=== PATIENT | female | born 2000 | race Caucasian/White ===

== ENCOUNTER 2018-06-06 14:57 | Observation (INO) | payer MEDICAID, SELFPAY ==
--- NOTE | 2018-06-06 15:10 | PCM.HP.STD ---
Problem List (1) Acute narcotic withdrawal Status: Acute (2) Heroin abuse Status: Chronic (3) Xanax use disorder, mild, in sustained remission, abuse Status: Chronic (4) Anxiety and depression Status: Chronic (5) PTSD (post-traumatic stress disorder) Status: Chronic (6) Tobacco abuse Status: Acute History of Present Illness Date of Admission: 06/06/18 Chief Complaint: Acute opiate withdrawal The patient is a 17 y/o F w/ PMHx: Anxiety and Depression/PTSD prescribed cannabis with no usage currently x 2 months, Prior BZD abuse w/ regular Xanax abuse with no usage currently x 6 months, Heroine Usage via snorting only with denied IVDA with usual regimen 1 gm daily, Tobacco use who presents to the [facility] at [facility] on 06/06/18 w/ noted opiate withdrawal onset starting this AM following last dose ~ 1 gm heroine nearing midnight the evening prior with abdominal pain/cramping, generalized body aches and pains, rhinorrhea, piloerection, fatigue, restless leg, sweating, yawning. Patient interested in attaining clean status. She plans to transition following to inpatient treatment in [place]. Past Medical History Past Medical History (Chronic Problems): Chronic Problems Heroin abuse (Chronic) Xanax use disorder, mild, in sustained remission, abuse (Chronic) Anxiety and depression (Chronic) PTSD (post-traumatic stress disorder) (Chronic) Home Medications: Ambulatory Orders Medication Instructions Recorded Multivitamin [Multiple Vitamins] 1 each PO DAILY 06/06/18 Surgical History: - - Deviated septum repair. Psychiatric History: Anxiety, Depression, Post traumatic stress TRANS ROUTER History: No pertinent TRANS ROUTER history Lives: With Family - Patient was with her mother. Smoking Status: Current every day smoker Tobacco Use: Cigarettes Alcohol: Sober - Patient has been off alcohol for at least one year. Drugs: - - Patient has a history of prior Xanax abuse but has been off usage times 6 months in addition to a history of cannabis usage which she has been prescribed for her PTSD and has been off for 2 months, history of crack usage off times 2 months as well as a prior history of heavy alcohol consumption but sober times 1 year. - *Family History Maternal History Items: Hypertension, - - She also notes a maternal grandfather with a history of diabetes. Paternal History Items: Unknown - She does not know her paternal family history. Review of Systems Constitutional: Reports: Malaise, Weakness, Fatigue. Denies: Chills, Fever, Weight Change HEENT: Reports: Nasal Congestion, Post Nasal Drip, Sinus Congestion. Denies: Head Aches, Sinus Drainage Cardiovascular: Denies: Chest Pain, Palpitations Respiratory: Denies: Cough, Shortness of breath at rest, Sputum production Gastrointestinal: Reports: Abdominal Pain, Diarrhea, Nausea. Denies: Vomiting Genitourinary: Denies: Dysuria Musculoskeletal: Reports: Joint Pain, Muscle pain. Denies: Joint Tenderness Skin: Denies: Rash, Wounds Neurological: Denies: Numbness, Tingling, Focal weakness Psychiatric: Reports: Anxiety, Depression. Denies: Homicidal Ideations, Suicidal Ideations Hematologic/ Lymphatic: Denies: Easy Bruising, Easy Bleeding VTE Information - Inpt Only VTE Present on Admission: No VTE Mechan Device Prophylaxis: None VTE Pharm Prophylaxis ordered?: No Reason prophylaxis not ordered:: Treatment Not Indicated Patient Problems: Active and Suspected Problems Acute narcotic withdrawal (Acute) Tobacco abuse (Acute) Subjective: Seated upright the bed, notes ongoing nausea, mildly agitated. Objective: Physical Examination: General: awake, alert, oriented x 3 and cooperative, seated upright in MS bed, mildly agitated, rocking in the bed, noting nauseated. Skin: normal color, turgor, no icterus, cyanosis. HEENT: AT/NC, EOMI, PERRLA, mildly dry MM, no carotid bruits or JVD noted. Lungs: CTA bilaterally, moderate effort, mild decrease BL bases, no rales, ronchi or wheezing. Heart: Mildly tachycardic egular rate and rhythm; no gallop, rub audible. Abdomen: soft, mild generalized discomfort w/ palpation, ND, mildly hyperactive BS, no HSM. Extremities: no cyanosis, clubbing, or edema. Neurological: patient awake, alert, oriented x 3; cognitive function appears baseline intact; pupils equally reactive to light and accomodation; cranial nerves II-XII grossly normal, moving all 4 extremities, no focal deficits, strength mildly to moderately globally decreased secondary to acute presentation. Psychiatric: affect appears fatigued, mildly agitated, no acute evidence of depressive or anxiety feelings. Assessment/Plan All Active Problems Acute narcotic withdrawal (Acute) Tobacco abuse (Acute) The patient is a 17 y/o F w/ PMHx: Anxiety and Depression/PTSD prescribed cannabis with no usage currently x 2 months, Prior BZD abuse w/ regular Xanax abuse with no usage currently x 6 months, Heroine Usage via snorting only with denied IVDA with usual regimen 1 gm daily, Tobacco use who presents to the [facility] at [facility] on 06/06/18 w/ noted opiate withdrawal onset. (1) Acute Opiate Withdrawal: Will admit to [facility], obtain routine labs including CBC, CMP, urine for drug screen, urinalysis, serum lipase, routine EKG and will initiate and continue on [facility] service protocol with tapering course of Subutex, as needed Seroquel, Librium, Sinemet, Catapres, Bentyl, Vistaril, IV fluids, IV antiemetics, Tylenol as needed for pain. Once patient clinically improved and completion of taper nearing will plan [facility] assistance for transition to next level of rehabilitation care. (2) Polysubstance Abuse Hx, Denied any IVDA Hx: To be cautious will obtain HIV, hepatitis panel. Encouraged PCP establishment and follow-up. (3) Tobacco Abuse: Encouraged cessation, inpatient consultation per RT, NR if desired. (4) Anxiety and Depression/PTSD: Would benefit from consideration SSRI, strongly recommend avoidance of cannabis as regimen given abuse history in addition to avoidance of BZD given prior abuse on xanax. (5) DVT Prophylaxis: Low risk, ambulation. Code Visit Inpatient E&M: 38861 Init Hosp L3
[2018-06-06 15:21] VITALS: BMI 23.8
[2018-06-06 15:26] VITALS: BMI 23.8
[2018-06-06 15:46] VITALS: BP 114/75; PULSE 91; RESP 16; TEMP 36.7; O2SAT 98
[2018-06-06 16:05] LABS: Red Blood Cells-Urine 0 SEEN /hpf (0-5)
[2018-06-06 16:07] LABS: Color, Urine Yellow (Yellow); Glucose, Dipstick Normal (Normal); Ketone-Dipstick Negative (Negative); Leukocyte Esterase-Dipstick 25 /ul (Negative); Nitrite-Dipstick Negative (Negative); Occult Blood-Urine Negative /ul (Negative); Protein-Dipstick 100 mg/dl (Negative); Specific Gravity, Urine 1.015 (1.002-1.030); Urine Bilirubin Dipstick Negative (Negative); Urine Clarity Sl. Cloudy (Clear); Urine Urobilinogen 1 mg/dl (Normal)
[2018-06-06 16:18] LABS: Amorphous Sediment 2+; Bacteria 3+ /hpf (None Seen); Mucous, Urine 2+ /hpf (<or=2+); Squamous Epithelial Cells - UA 5-10 SEEN /hpf (5-10); White Blood Cells 0-5 SEEN /hpf (0-5)
[2018-06-06 16:24] LABS: Absolute Lymphocyte Count 2.91 X10^3/ul (0.83-4.51); Absolute Neutrophil Count 3.8 X10^3/uL (2.0-7.7); Basophil# 0.03 X10^3/uL; Basophil% 0.4 % (0-1); Eosinophil# 0.12 X10^3/uL; Eosinophils% 1.7 % (0-5); Hematocrit 39.9 % (37-47); Hemoglobin 13.3 g/dl (12.0-15.0); Lymphocyte # 2.91 X10^3/ul (4.0); Lymphocyte % 40.1 % (19-41); Mean Corp Hgb Conc 33.3 g/gl (32-36); Mean Corpuscular Volume 86.9 fL (81-99); Mean Platelet Vol. 10.1 fl (6.2-12.0); Monocyte# 0.42 X10^3/uL; Monocyte% 5.8 % (0-10); Neutrophil # 3.77 X10^3/uL (2.7-7.7); Neutrophil % 51.9 % (47-70); Platelet Count 223 K/mm3 (150-450); RBC Distribution Width CV 13.1 % (11.6-14.6); RBC Distribution Width SD 41.8 fl (35.1-43.9); Red Blood Count 4.59 M/mm3 (4.2-5.4); White Blood Count 7.3 K/mm3 (4.4-11.0)
[2018-06-06 16:25] LABS: POSITIVE COUNT NO; POSITIVE DIFFERENTIAL NO; POSITIVE MORPHOLOGY NO
[2018-06-06 16:27] LABS: Prothrombin Time (Protime)PT. 12.9 SECONDS (11.7-14.9)
[2018-06-06 16:33] LABS: Amphetamine Urine VISTA NEGATIVE (<1000 ng/mL); Barbiturate Urine VISTA NEGATIVE (< 200 ng/mL); Benzodiazepine Urine VISTA POSITIVE (< 200 ng/mL); Cocaine Urine VISTA NEGATIVE (< 300 ng/mL); Ecstacy Urine VISTA NEGATIVE (< 500 ng/mL); Methadone Urine VISTA NEGATIVE (< 300 ng/mL); PCP Urine VISTA NEGATIVE (< 25 ng/mL); THC Urine VISTA NEGATIVE (< 50 ng/mL); Vista UDS pH Range 6
[2018-06-06] MEDS: Buprenorphine HCl 2 MG TAB.SUBL SL ×2 (16:37→23:08)
[2018-06-06 16:40] LABS: ALB/GLOB Ratio 1.2 RATIO (0.9-2.4); AST(SGOT) 30 U/L (15-37); Alanine Aminotransfer ALT/SGPT 33 U/L (13-56); Albumin, Serum 4.6 g/dL (3.2-5.0); Alkaline Phosphatase 84 U/L (45-117); Amylase 63 U/L (25-115); Anion Gap 10 (5-15); BUN 14 mg/dL (7-18); BUN/Creat Ratio 15.6 RATIO (10-20); Calcium,Total 9.4 mg/dL (8.5-10.1); Chloride 93 mmol/L (98-107); EST Glomerular Filtration Rate 86 mL/min (>60); Est Glom Filt Rate - Afr Amer 103 mL/min (>60); Estimated Creatinine Clearance 72.22 ml/min; Globulin 3.9 g/dL (2.2-4.2); Glucose 142 mg/dL (74-106); Lipase 69 U/L (73-393); Potassium 2.6 mmol/L (3.5-5.1); Protein, Total 8.5 g/dL (6.4-8.2); Sodium Level 134 mmol/L (136-145)
[2018-06-06 16:45] VITALS: PULSE 112
[2018-06-06] MEDS: Methocarbamol 750 MG Tablet PO ×2 (16:45→23:08)
[2018-06-06] MEDS: cloNIDine HCl 0.1 MG Tablet PO ×2 (16:45→23:08)
[2018-06-06] MEDS: hydrOXYzine PAM 25 MG Capsule 50 MG PO (16:45)
[2018-06-06 16:47] LABS: Pregnancy, Serum, hCG Quali. NEGATIVE Negative (0-9 Nonpreg)
[2018-06-06 16:52] LABS: Magnesium 2.1 mg/dL (1.6-2.6)
[2018-06-06 17:27] LABS: HIV - WCH Non-Reactive (Nonreactive)
[2018-06-06 17:50] VITALS: BP 108/68; PULSE 101; RESP 16; TEMP 36.6
[2018-06-06 23:00] VITALS: BP 98/57; PULSE 86; RESP 16; TEMP 36.6
[2018-06-06] MEDS: traZODone 50 MG Tablet PO (23:08)
[2018-06-07 02:00] VITALS: BP 95/62; PULSE 72; RESP 16; TEMP 36.6
[2018-06-07 06:00] VITALS: BP 101/58; PULSE 91; RESP 16; TEMP 36.6
[2018-06-07] MEDS: Buprenorphine HCl 2 MG TAB.SUBL SL ×3 (07:00→23:04)
[2018-06-07] MEDS: Methocarbamol 750 MG Tablet PO (07:00)
[2018-06-07] MEDS: cloNIDine HCl 0.1 MG Tablet PO ×3 (07:01→18:20)
[2018-06-07] MEDS: hydrOXYzine PAM 25 MG Capsule 50 MG PO ×2 (07:01→20:51)
[2018-06-07] MEDS: Loperamide 2 MG Capsule PO (07:03)
--- NOTE | 2018-06-07 07:53 | PN_ITS ---
Patient Problems: Active and Suspected Problems Acute narcotic withdrawal (Acute) Tobacco abuse (Acute) Subjective: The patient is a 17-year-old female with a past medical history of anxiety/depression/PTSD and tobacco dependence who has a history of prescribed cannabis use (states has not used in 2 months), prior Benzo abuse(denies use for 6 months) and heroin use currently. Denies IV use....she snorts the heroin and uses approximately 1 g daily. She presented to the [facility] office on 06/06/2018 requesting inpatient admission for medical stabilization for acute opiate withdrawal. Symptoms at admission included abdominal pain/cramping, generalized body aches and pains, rhinorrhea, restless leg and sweating. CBC was normal. PT was normal. Potassium was low at 2.6. A random blood sugar was elevated at 142 and serum test was negative. A clean-catch urine showed 0-5 WBCs with 3+ bacteria and 5-10 squamous epithelial cells. Urine drug screen was positive for opiates and benzodiazepines which she stated she had not used in 6 months. HIV was nonreactive and the hepatitis panel is pending. Her fiance is a recovering addict. She is dropping out of college this semester. Was in [facility] in March and went back to using almost as soon as she was discharged. Tells me that her father is BIpolar and an addict and she is also bipolar. Has been on multiple meds in the past but, then she went to a holistic healer who put her on a lot of vitamins and cleanses and this worked for her but, she uses heroin to self-medicate. Plans on going to in-pt facility this time at [place] and she has an appt at [facility] on 06/12/2018 at 8:30 AM. She plans on going home to her mother's house at discharge on Sunday. Her mother is not an addict......she plans on driving herself there. Objective: PHYSICAL EXAM: GENERAL: alert, oriented X 3, Cooperative, NAD, diaphoretic, not fidgeting in the bed, has rhinorrhea ORAL: moist mucosa, no mucosal lesions NECK: No JVD, supple, trachea midline LUNGS: CTA, symmetric chest expansion HEART: RRR, Normal S1 and S2, no rub, no murmur, no gallop ABDOMEN: soft, NT, ND, BS present, no guarding with palpation EXTREMITIES: no edema, no cyanosis, no calf tenderness SKIN: No rashes, no breakdown NEUROLOGIC: no focal neurologic deficits PSYCH: appropriate, normal affect, pleasant - Physical Exam Vital Signs Temp Pulse Resp BP Pulse Ox 98 F 91 16 101/58 L 98 06/07/18 06:00 06/07/18 06:00 06/07/18 06:00 06/07/18 06:00 06/06/18 15:46 Oxygen Delivery Method Room Air Weight: 122 lb Body Mass Index (BMI) 23.8 Intake and Output for Last 24 Hours 06/05/18 06/06/18 06/07/18 23:59 23:59 23:59 Intake Total 840 / 840 200 / 200 Balance 840 / 840 200 / 200 Laboratory Tests Past 24 Hrs 06/06/18 06/06/18 06/06/18 15:40 15:50 16:00 WBC 7.3 RBC 4.59 Hgb 13.3 Hct 39.9 MCV 86.9 MCH 29.0 MCHC 33.3 RDW 13.1 RDW Differential 41.8 Plt Count 223 MPV 10.1 Immature Gran % (Auto) 0.100 Neut % (Auto) 51.9 Lymph % (Auto) 40.1 [place] % (Auto) 5.8 Eos % (Auto) 1.7 Baso % (Auto) 0.4 Absolute Neuts (auto) 3.8 Absolute Lymphs (auto) 2.91 Total Counted Not Reportable PT INR Sodium Potassium Chloride Carbon Dioxide Anion Gap BUN Creatinine Estim Creat Clear Calc Est GFR (MDRD) Af Amer Est GFR (MDRD) Non-Af BUN/Creatinine Ratio Glucose Calcium Magnesium Total Bilirubin AST ALT Alkaline Phosphatase Total Protein Albumin Globulin Albumin/Globulin Ratio Amylase Lipase Serum , Qual Urine Color Yellow Urine Clarity Sl. Cloudy Urine pH 8.0 Ur Specific [place] 1.015 Urine Protein 100 H Urine Glucose (UA) Normal Urine Ketones Negative Urine Occult Blood Negative Urine Nitrite Negative Urine Bilirubin Negative Urine Urobilinogen 1 H Ur Leukocyte Esterase 25 H Urine RBC 0 SEEN Urine WBC 0-5 SEEN Ur Squamous Epith Cells 5-10 SEEN Amorphous Sediment 2+ Urine Bacteria 3+ Urine Mucus 2+ Urine Opiates Screen POSITIVE H Urine Methadone Screen NEGATIVE Ur Barbiturates Screen NEGATIVE Ur Phencyclidine Scrn NEGATIVE Ur Amphetamines Screen NEGATIVE U Methamphetamin-MDMA NEGATIVE U Benzodiazepines Scrn POSITIVE H Urine Cocaine Screen NEGATIVE U Cannabinoids Screen NEGATIVE Ur Drug Screen Comment Ethyl Alcohol Hepatitis A IgM Ab Hepatitis A Ab Total Hep Bs Antigen Hep B Core Total Ab Hep B Core IgM Ab HIV 1&2 Antibody 06/06/18 06/06/18 06/06/18 16:00 16:00 16:00 WBC RBC Hgb Hct MCV MCH MCHC RDW RDW Differential Plt Count MPV Immature Gran % (Auto) Neut % (Auto) Lymph % (Auto) [place] % (Auto) Eos % (Auto) Baso % (Auto) Absolute Neuts (auto) Absolute Lymphs (auto) Total Counted PT 12.9 INR 1.0 Sodium 134 L Potassium 2.6 L* Chloride 93 L Carbon Dioxide 31.0 Anion Gap 10 BUN 14 Creatinine 0.90 Estim Creat Clear Calc 72.22 Est GFR (MDRD) Af Amer 103 Est GFR (MDRD) Non-Af 86 BUN/Creatinine Ratio 15.6 Glucose 142 H Calcium 9.4 Magnesium Total Bilirubin 0.40 AST 30 ALT 33 Alkaline Phosphatase 84 Total Protein 8.5 H Albumin 4.6 Globulin 3.9 Albumin/Globulin Ratio 1.2 Amylase 63 Lipase 69 L Serum , Qual Urine Color Urine Clarity Urine pH Ur Specific [place] Urine Protein Urine Glucose (UA) Urine Ketones Urine Occult Blood Urine Nitrite Urine Bilirubin Urine Urobilinogen Ur Leukocyte Esterase Urine RBC Urine WBC Ur Squamous Epith Cells Amorphous Sediment Urine Bacteria Urine Mucus Urine Opiates Screen Urine Methadone Screen Ur Barbiturates Screen Ur Phencyclidine Scrn Ur Amphetamines Screen U Methamphetamin-MDMA U Benzodiazepines Scrn Urine Cocaine Screen U Cannabinoids Screen Ur Drug Screen Comment Ethyl Alcohol 11.0 Hepatitis A IgM Ab Hepatitis A Ab Total Hep Bs Antigen Hep B Core Total Ab Hep B Core IgM Ab HIV 1&2 Antibody 06/06/18 06/06/18 06/06/18 16:00 16:00 16:00 WBC RBC Hgb Hct MCV MCH MCHC RDW RDW Differential Plt Count MPV Immature Gran % (Auto) Neut % (Auto) Lymph % (Auto) [place] % (Auto) Eos % (Auto) Baso % (Auto) Absolute Neuts (auto) Absolute Lymphs (auto) Total Counted PT INR Sodium Potassium Chloride Carbon Dioxide Anion Gap BUN Creatinine Estim Creat Clear Calc Est GFR (MDRD) Af Amer Est GFR (MDRD) Non-Af BUN/Creatinine Ratio Glucose Calcium Magnesium Total Bilirubin AST ALT Alkaline Phosphatase Total Protein Albumin Globulin Albumin/Globulin Ratio Amylase Lipase Serum , Qual NEGATIVE Urine Color Urine Clarity Urine pH Ur Specific [place] Urine Protein Urine Glucose (UA) Urine Ketones Urine Occult Blood Urine Nitrite Urine Bilirubin Urine Urobilinogen Ur Leukocyte Esterase Urine RBC Urine WBC Ur Squamous Epith Cells Amorphous Sediment Urine Bacteria Urine Mucus Urine Opiates Screen Urine Methadone Screen Ur Barbiturates Screen Ur Phencyclidine Scrn Ur Amphetamines Screen U Methamphetamin-MDMA U Benzodiazepines Scrn Urine Cocaine Screen U Cannabinoids Screen Ur Drug Screen Comment Ethyl Alcohol Hepatitis A IgM Ab Pending Hepatitis A Ab Total Pending Hep Bs Antigen Pending Hep B Core Total Ab Pending Hep B Core IgM Ab Pending HIV 1&2 Antibody Non-Reactive 06/06/18 16:00 WBC RBC Hgb Hct MCV MCH MCHC RDW RDW Differential Plt Count MPV Immature Gran % (Auto) Neut % (Auto) Lymph % (Auto) [place] % (Auto) Eos % (Auto) Baso % (Auto) Absolute Neuts (auto) Absolute Lymphs (auto) Total Counted PT INR Sodium Potassium Chloride Carbon Dioxide Anion Gap BUN Creatinine Estim Creat Clear Calc Est GFR (MDRD) Af Amer Est GFR (MDRD) Non-Af BUN/Creatinine Ratio Glucose Calcium Magnesium 2.1 Total Bilirubin AST ALT Alkaline Phosphatase Total Protein Albumin Globulin Albumin/Globulin Ratio Amylase Lipase Serum , Qual Urine Color Urine Clarity Urine pH Ur Specific [place] Urine Protein Urine Glucose (UA) Urine Ketones Urine Occult Blood Urine Nitrite Urine Bilirubin Urine Urobilinogen Ur Leukocyte Esterase Urine RBC Urine WBC Ur Squamous Epith Cells Amorphous Sediment Urine Bacteria Urine Mucus Urine Opiates Screen Urine Methadone Screen Ur Barbiturates Screen Ur Phencyclidine Scrn Ur Amphetamines Screen U Methamphetamin-MDMA U Benzodiazepines Scrn Urine Cocaine Screen U Cannabinoids Screen Ur Drug Screen Comment Ethyl Alcohol Hepatitis A IgM Ab Hepatitis A Ab Total Hep Bs Antigen Hep B Core Total Ab Hep B Core IgM Ab HIV 1&2 Antibody Medical Necessity - Tobacco Use Smoking Status: Current every day smoker Tobacco Use: Cigarettes Assessment/Plan All Active Problems Acute narcotic withdrawal (Acute) Tobacco abuse (Acute) Impressions 1. acute opiate withdrawal 2. opiate dependence 3. probable benzo dependence although she continues to deny this even after I told her her drug screen was + for benzo's 4. BPD 5. tobacco dependence Continue the [facility] program for medical stabilization for acute opiate withdrawal I am suspicious she may be a regular user of benzo's - will change the Librium to 25 mg Q8 H PRN and taper again tomorrow.......if she starts to go into withdrawal will need to have her go somewhere where she can be tapered off.......she may be better at a facility that handles dual diagnoses Hepatitis A, B and C are pending Code Visit Inpatient E&M: 80581 Subs Hosp L2
[2018-06-07 10:37] VITALS: BP 98/58; PULSE 102; RESP 16; TEMP 36.6
[2018-06-07 13:25] VITALS: BP 98/59; PULSE 98; RESP 16; TEMP 36.5
--- NOTE | 2018-06-07 14:37 | NEWVISION ---
Patient has an appointment for PHP Sunday-Sunday at [facility] on 06/12/18 at 8:30 am.
[2018-06-07] MEDS: chlordiazePOXIDE 25 MG Capsule PO ×2 (16:32→23:05)
[2018-06-07 18:00] VITALS: BP 94/58; PULSE 94; RESP 18; TEMP 36.7
[2018-06-07 20:42] VITALS: BP 103/57; PULSE 106; RESP 16; TEMP 37
[2018-06-07] MEDS: Pramipexole Di-HCl 0.25 MG Tablet PO (20:51)
[2018-06-07] MEDS: traZODone 50 MG Tablet PO (23:04)
[2018-06-08 05:08] LABS: HEPATITIS B SURFACE AG Negative (Negative); Hepatitis A AB, Total Negative (Negative); Hepatitis A IgM Antibody Negative (Negative); Hepatitis B Core AB IgM Negative (Negative); Hepatitis B Core Ab Total Negative (Negative); Hepatitis C Ab <0.1 s/co ratio (0.0-0.9)
[2018-06-08 05:15] VITALS: BP 97/59; PULSE 86; RESP 16; TEMP 36.6; O2SAT 100
[2018-06-08 08:26] VITALS: BP 92/63; PULSE 100; RESP 18; TEMP 36.8; O2SAT 100
[2018-06-08] MEDS: Buprenorphine HCl 2 MG TAB.SUBL SL ×2 (08:28→20:22)
[2018-06-08] MEDS: chlordiazePOXIDE 25 MG Capsule PO ×2 (08:32→21:05)
[2018-06-08] MEDS: cloNIDine HCl 0.1 MG Tablet PO ×3 (08:32→21:05)
[2018-06-08 09:42] VITALS: BP 92/63; PULSE 100; RESP 18; TEMP 36.8
--- NOTE | 2018-06-08 11:10 | PCM.PROGNOTE ---
Patient Problems: Active and Suspected Problems Acute narcotic withdrawal (Acute) Tobacco abuse (Acute) Subjective: Afebrile. Vital signs stable, but she is tachycardic at 100 BPM 100% on room air. She told me that she has not used Benzo's in 6 months yet the drug screen is + for benzo's. We talked about her fiance and she told me that he has been clean for 3 years and now I find out that he is admitted to [facility] for acute opiate withdrawal. Both she and the BF have been living with her mother and the pt was thrown out of the house by the mother and the boyfriend because she could not stay clean.....and now the boyfriend is here for detox also, I suspect she is also addicted to benzo's but, she continues to tel me that to her knowledge she hAS not been taking benzo's.... Has been using he same dealer for the past 8 months. Denies nausea, vomiting, diarrhea, tremors or diaphoresis today. Tells me she slept pretty well last night. Appetite is improving. Objective: PHYSICAL EXAM: GENERAL: alert, oriented X 3, Cooperative, NAD ORAL: moist mucosa, no mucosal lesions NECK: No JVD, supple, trachea midline LUNGS: CTA, symmetric chest expansion HEART: RRR, Normal S1 and S2, no rub, no gallop ABDOMEN: soft, NT, ND, BS present, no guarding with palpation EXTREMITIES: no edema, no cyanosis, no calf tenderness SKIN: No rashes, no breakdown NEUROLOGIC: no focal neurologic deficits PSYCH: appropriate, normal affect, pleasant - Physical Exam Vital Signs Temp Pulse Resp BP Pulse Ox 98.3 F 100 18 92/63 100 06/08/18 09:42 06/08/18 09:42 06/08/18 09:42 06/08/18 09:42 06/08/18 08:26 Oxygen Delivery Method Room Air Weight: 122 lb Body Mass Index (BMI) 23.8 Intake and Output for Last 24 Hours 06/06/18 06/07/18 06/08/18 23:59 23:59 23:59 Intake Total 840 / 840 1475 / 1475 240 / 240 Balance 840 / 840 1475 / 1475 240 / 240 Medical Necessity - Tobacco Use Smoking Status: Current every day smoker Tobacco Use: Cigarettes Assessment/Plan All Active Problems Acute narcotic withdrawal (Acute) Tobacco abuse (Acute) Impressions 1. acute opiate withdrawal 2. opiate dependence 3. probable benzo dependence although she continues to deny this even after I told her her drug screen was + for benzo's 4. BPD 5. tobacco dependence Decrease chlordiazepoxide to 25 mg p.o. every 12 hours. Continue the [facility] protocol for acute opiate withdrawal Plan discharge from the hospital tomorrow and she has an appointment at [facility] Sunday at 08 30. She will be going to her mother's house at discharge tomorrow. Code Visit Inpatient E&M: 67971 Subs Hosp L2
[2018-06-08 12:46] LABS: Potassium 4.7 mmol/L (3.5-5.1)
[2018-06-08 14:30] VITALS: BP 112/64; PULSE 104; RESP 18; TEMP 37; O2SAT 100
[2018-06-08 18:00] VITALS: BP 101/66; PULSE 107; RESP 18; TEMP 36.5
[2018-06-08] MEDS: QUEtiapine 25 MG Tablet PO (19:16)
[2018-06-08] MEDS: Pramipexole Di-HCl 0.25 MG Tablet PO (20:25)
[2018-06-08] MEDS: Methocarbamol 750 MG Tablet PO (20:25)
[2018-06-08] MEDS: hydrOXYzine PAM 25 MG Capsule 50 MG PO (20:25)
[2018-06-08 21:00] VITALS: BP 139/69; PULSE 110; RESP 18; TEMP 37
[2018-06-08] MEDS: Dicyclomine 10 MG Capsule 20 MG PO (21:05)
[2018-06-08] MEDS: traZODone 50 MG Tablet PO (21:05)
[2018-06-09 09:03] VITALS: BP 105/60; PULSE 81; RESP 18; TEMP 36.5; O2SAT 100
[2018-06-09] MEDS: Buprenorphine HCl 2 MG TAB.SUBL SL (09:06)
[2018-06-09] MEDS: chlordiazePOXIDE 25 MG Capsule PO (09:09)
[2018-06-09 10:00] VITALS: BP 105/60; PULSE 81; RESP 18; TEMP 36.5
[2018-06-09 10:02] LABS: Hep C Antibodies <0.1 s/co ratio (0.0-0.9)
[2018-06-09 10:03] LABS: Hep B Surface Antibodies Non Reactive (.)
--- NOTE | 2018-06-09 10:51 | PCM.DC ---
- Discharge Diagnoses Current Active Problems: Current Active and Chronic Problems Acute narcotic withdrawal (Acute) Heroin abuse (Chronic) Xanax use disorder, mild, in sustained remission, abuse (Chronic) Anxiety and depression (Chronic) PTSD (post-traumatic stress disorder) (Chronic) Tobacco abuse (Acute) You will use the following diet at home:: No restrictions Your food should be the consistency of: Regular Your liquids should be the consistency of: Regular/Thin Discharge Activity: Return to Normal Activity Call your doctor if you observe: Fever of 101 or Higher, Dizziness, Fainting spells, Chest pain, - - racing heart, seizures, severe anxiety Instructions: ED Withdrawal Benzodiazepine Additional Instructions: I know that you tell me that you are not taking Benzodiazepines BUT, they were in your drug screen. I am suspicious that you are also going through benzodiazepine withdrawal as well as narcotic withdrawal. Benzodiazepines need to be tapered more slowly than narcotics. I have given you a prescription for chlordiazepoxide, also called Librium, and you will take 1 pill twice a day and no more. I have given you enough for 5 days and they will need to address this problem at [facility]. Good luck. Keep trying and keep working with your counsellor to treat the PTSD and the Bipolar disorder. The hepatitis panel and the HIV are negative. Allergies/Adverse Reactions: Allergies amoxicillin [From Augmentin] Allergy (Verified 06/06/18 15:20) Vomiting clavulanic acid [From Augmentin] Allergy (Verified 06/06/18 15:20) Vomiting Medications to take at Discharge Multivitamin [Multiple Vitamins] 1 each PO DAILY 06/06/18 Chlordiazepoxide [Librium] 25 mg PO BID #10 cap 06/09/18 The following prescriptions were given: Chlordiazepoxide [Librium] 25 mg PO BID #10 cap Test Results: Test results from this visit will be discussed in further detail at your follow-up appointment, if applicable. Proposed Discharge Date: 06/09/18
--- NOTE | 2018-06-09 10:55 | DCINST_ITS ---
- Discharge Diagnoses Current Active Problems: Current Active and Chronic Problems Acute narcotic withdrawal (Acute) Heroin abuse (Chronic) Xanax use disorder, mild, in sustained remission, abuse (Chronic) Anxiety and depression (Chronic) PTSD (post-traumatic stress disorder) (Chronic) Tobacco abuse (Acute) You will use the following diet at home:: No restrictions Your food should be the consistency of: Regular Your liquids should be the consistency of: Regular/Thin Discharge Activity: Return to Normal Activity Call your doctor if you observe: Fever of 101 or Higher, Dizziness, Fainting spells, Chest pain, - - racing heart, seizures, severe anxiety Instructions: ED Withdrawal Benzodiazepine Additional Instructions: I know that you tell me that you are not taking Benzodiazepines BUT, they were in your drug screen. I am suspicious that you are also going through benzodiazepine withdrawal as well as narcotic withdrawal. Benzodiazepines need to be tapered more slowly than narcotics. I have given you a prescription for chlordiazepoxide, also called Librium, and you will take 1 pill twice a day and no more. I have given you enough for 5 days and they w ill need to address this problem at [facility]. Good luck. Keep trying and keep working with your counsellor to treat the PTSD and the Bipolar disorder. The hepatitis panel and the HIV are negative. Allergies/Adverse Reactions: Allergies amoxicillin [From Augmentin] Allergy (Verified 06/06/18 15:20) Vomiting clavulanic acid [From Augmentin] Allergy (Verified 06/06/18 15:20) Vomiting Medications to take at Discharge Multivitamin [Multiple Vitamins] 1 each PO DAILY 06/06/18 Chlordiazepoxide [Librium] 25 mg PO BID #10 cap 06/09/18 The following prescriptions were given: Chlordiazepoxide [Librium] 25 mg PO BID #10 cap Test Results: Test results from this visit will be discussed in further detail at your follow- up appointment, if applicable. Proposed Discharge Date: 06/09/18
[2018-06-09 11:02] VITALS: BP 105/63; PULSE 54; RESP 18; TEMP 36.8; O2SAT 98
--- NOTE | 2018-06-09 11:02 | PCM.DC.SUM ---
Discharge Date and Diagnosis - Problem List Patient Problems: Active and Suspected Problems Acute narcotic withdrawal (Acute) Date of Admission: 06/06/18 - Primary Discharge Diagnosis Active and Suspected Problems Acute narcotic withdrawal (Acute) - Secondary Discharge Diagnosis Chronic Problems Bipolar disorder (Chronic) History of benzodiazepine use (Chronic) Heroin abuse (Chronic) Anxiety and depression (Chronic) PTSD (post-traumatic stress disorder) (Chronic) Tobacco abuse (Chronic) Hospital Course and Treatment Summary of Care Provided: The patient is a 17-year-old female with a past medical history of anxiety/depression/PTSD/BPD and tobacco dependence who has a history of prescribed cannabis use (states has not used in 2 months), prior Benzo abuse(denies use for 6 months) and heroin use currently. She Denies IV use....she snorts the heroin and uses approximately 1 g daily. She is living out of her car because she was kicked out of the house by her mother for using. She presented to the [facility] office on 06/06/2018 requesting inpatient admission for medical stabilization for acute opiate withdrawal. Symptoms at admission included abdominal pain/cramping, generalized body aches and pains, rhinorrhea, restless leg and sweating. CBC was normal. PT was normal. Potassium was low at 2.6. A random blood sugar was elevated at 142 and serum test was negative. A clean-catch urine showed 0-5 WBCs with 3+ bacteria and 5-10 squamous epithelial cells. Urine drug screen was positive for opiates and benzodiazepines which she stated she had not used in 6 months. HIV and hepatitis panel were negative. The [facility] protocol for acute opiate withdrawal was initiated. She continued to deny Benzo use and told me maybe the dealer was cutting the heroin with Benzo's? I suspect she is shaggy withdrawing from Benzo's as well as heroin. She was placed on Scheduled Librium and this was tapered to 25 mg BID at [place]. She had ST and an increased BP the night prior to DC but, on the morning of discharge her heart rate was 81 with a blood pressure of 105/60 and a respiratory rate of 18. She was discharged home with a RX for Librium 25 mg, number 10 tablets, and instructed to take 1 twice daily and no more. She has an appointment at [facility] Sunday morning at 830. Her mother is in the area and plans on following her home today and staying with her until she goes to [facility]. PHYSICAL EXAM: GENERAL: alert, oriented X 3, Cooperative, NAD ORAL: moist mucosa, no mucosal lesions NECK: No JVD, supple, trachea midline LUNGS: CTA, symmetric chest expansion HEART: RRR, Normal S1 and S2, no rub, no gallop ABDOMEN: soft, NT, ND, BS present, no guarding with palpation EXTREMITIES: no edema, no cyanosis, no calf tenderness SKIN: No rashes, no breakdown, hands are still diaphoretic NEUROLOGIC: no focal neurologic deficits PSYCH: appropriate, normal affect, pleasant, cooperative This note was generated with Touch[employer] dictation software. It may contain incorrect words, spelling, and punctuation that were not noted in checking the note before signing. Patient Problems: Active and Suspected Problems Acute narcotic withdrawal (Acute) - Physical Exam Vital Signs Temp Pulse Resp BP Pulse Ox 97.7 F L 81 18 105/60 100 06/09/18 10:00 06/09/18 10:00 06/09/18 10:00 06/09/18 10:00 06/09/18 09:03 Oxygen Delivery Method Room Air Weight: 122 lb Body Mass Index (BMI) 23.8 Intake and Output for Last 24 Hours 06/07/18 06/08/18 06/09/18 23:59 23:59 23:59 Intake Total 1475 / 1475 2370 / 2370 350 / 350 Balance 1475 / 1475 2370 / 2370 350 / 350 Laboratory Tests Past 24 Hrs 06/06/18 06/06/18 06/08/18 16:00 16:00 12:00 Potassium 4.7 Hepatitis A IgM Ab Negative Hepatitis A Ab Total Negative Hep Bs Antigen Negative Hep B Core Total Ab Negative Hep B Core IgM Ab Negative Hepatitis C Ab (EIA) <0.1 Hepatitis C Ab Confirm <0.1 Hepatitis C Comment Comment Discharge Activity: Return to Normal Activity Call your doctor if you observe: Fever of 101 or Higher, Dizziness, Fainting spells, Chest pain, - - racing heart, seizures, severe anxiety Home Medications: Medications to take at Discharge Multivitamin [Multiple Vitamins] 1 each PO DAILY 06/06/18 Chlordiazepoxide [Librium] 25 mg PO BID #10 cap 06/09/18 Following Prescrptions Were Given to Patient: Chlordiazepoxide [Librium] 25 mg PO BID #10 cap Patient Instructions: ED Withdrawal Benzodiazepine Disposition: Home Minutes spent on discharge:: 30 Patient Condition:: Stable Medical Necessity - Tobacco Use Smoking Status: Current every day smoker Tobacco Use: Cigarettes Meaningful Use Info Meaningful Use Diagnoses (Choose all that apply): None applicable Code Visit Inpatient E&M: 21522 Disch Hosp
--- NOTE | 2018-06-09 11:08 | DS.PCM_ITS ---
Discharge Date and Diagnosis - Problem List Patient Problems: Active and Suspected Problems Acute narcotic withdrawal (Acute) Date of Admission: 06/06/18 - Primary Discharge Diagnosis Active and Suspected Problems Acute narcotic withdrawal (Acute) - Secondary Discharge Diagnosis Chronic Problems Bipolar disorder (Chronic) History of benzodiazepine use (Chronic) Heroin abuse (Chronic) Anxiety and depression (Chronic) PTSD (post-traumatic stress disorder) (Chronic) Tobacco abuse (Chronic) Hospital Course and Treatment Summary of Care Provided: The patient is a 17-year-old female with a past medical history of anxiety/depression/PTSD/BPD and tobacco dependence who has a history of prescribed cannabis use (states has not used in 2 months), prior Benzo abuse(denies use for 6 months) and heroin use currently. She Denies IV use....she snorts the heroin and uses approximately 1 g daily. She is living out of her car because she was kicked out of the house by her mother for using. She presented to the [facility] office on 06/06/2018 requesting inpatient admission for medical stabilization for acute opiate withdrawal. Symptoms at admission included abdominal pain/cramping, generalized body aches and pains, rhinorrhea, restless leg and sweating. CBC was normal. PT was normal. Potassium was low at 2.6. A random blood sugar was elevated at 142 and serum test was negative. A clean-catch urine showed 0-5 WBCs with 3+ bacteria and 5-10 squamous epithelial cells. Urine drug screen was positive for opiates and benzodiazepines which she stated she had not used in 6 months. HIV and hepatitis panel were negative. The [facility] protocol for acute opiate withdrawal was initiated. She continued to deny Benzo use and told me maybe the dealer was cutting the heroin with Benzo's? I suspect she is shaggy withdrawing from Benzo's as well as heroin. She was placed on Scheduled Librium and this was tapered to 25 mg BID at [place]. She had ST and an increased BP the night prior to DC but, on the morning of discharge her heart rate was 81 with a blood pressure of 105/60 and a respiratory rate of 18. She was discharged home with a RX for Librium 25 mg, number 10 tablets, and instructed to take 1 twice daily and no more. She has an appointment at [facility] Sunday morning at 830. Her mother is in the area and plans on following her home today and staying with her until she goes to [facility]. PHYSICAL EXAM: GENERAL: alert, oriented X 3, Cooperative, NAD ORAL: moist mucosa, no mucosal lesions NECK: No JVD, supple, trachea midline LUNGS: CTA, symmetric chest expansion HEART: RRR, Normal S1 and S2, no rub, no gallop ABDOMEN: soft, NT, ND, BS present, no guarding with palpation EXTREMITIES: no edema, no cyanosis, no calf tenderness SKIN: No rashes, no breakdown, hands are still diaphoretic NEUROLOGIC: no focal neurologic deficits PSYCH: appropriate, normal affect, pleasant, cooperative This note was generated with ChatterBlock dictation software. It may contain incorrect words, spelling, and punctuation that were not noted in checking the note before signing. Patient Problems: Active and Suspected Problems Acute narcotic withdrawal (Acute) - Physical Exam Vital Signs Temp Pulse Resp BP Pulse Ox 97.7 F L 81 18 105/60 100 06/09/18 10:00 06/09/18 10:00 06/09/18 10:00 06/09/18 10:00 06/09/18 09:03 Oxygen Delivery Method Room Air Weight: 122 lb Body Mass Index (BMI) 23.8 Intake and Output for Last 24 Hours 06/07/18 06/08/18 06/09/18 23:59 23:59 23:59 Intake Total 1475 / 1475 2370 / 2370 350 / 350 Balance 1475 / 1475 2370 / 2370 350 / 350 Laboratory Tests Past 24 Hrs 06/06/18 06/06/18 06/08/18 16:00 16:00 12:00 Potassium 4.7 Hepatitis A IgM Ab Negative Hepatitis A Ab Total Negative Hep Bs Antigen Negative Hep B Core Total Ab Negative Hep B Core IgM Ab Negative Hepatitis C Ab (EIA) <0.1 Hepatitis C Ab Confirm <0.1 Hepatitis C Comment Comment Discharge Activity: Return to Normal Activity Call your doctor if you observe: Fever of 101 or Higher, Dizziness, Fainting spells, Chest pain, - - racing heart, seizures, severe anxiety Home Medications: Medications to take at Discharge Multivitamin [Multiple Vitamins] 1 each PO DAILY 06/06/18 Chlordiazepoxide [Librium] 25 mg PO BID #10 cap 06/09/18 Following Prescrptions Were Given to Patient: Chlordiazepoxide [Librium] 25 mg PO BID #10 cap Patient Instructions: ED Withdrawal Benzodiazepine Disposition: Home Minutes spent on discharge:: 30 Patient Condition:: Stable Medical Necessity - Tobacco Use Smoking Status: Current every day smoker Tobacco Use: Cigarettes Meaningful Use Info Meaningful Use Diagnoses (Choose all that apply): None applicable Code Visit Inpatient E&M: 82018 Disch Hosp
[2018-06-09 12:23] VITALS: BP 105/63; PULSE 54; RESP 18; TEMP 36.8; O2SAT 98
== END 2018-06-09 12:25 | disposition home or self-care (01) | DRG 773 ==
PROVIDERS: Admitting Provider Family Medicine; Visit Provider Internal Medicine
DX: F11.23 Opioid dependence with withdrawal (principal); F17.210 Nicotine dependence, cigarettes, uncomplicated; F43.10 Post-traumatic stress disorder, unspecified; F32.9 Major depressive disorder, single episode, unspecified; F41.9 Anxiety disorder, unspecified; F31.9 Bipolar disorder, unspecified; F15.11 Other stimulant abuse, in remission
CPT/HCPCS: 36415; 80053; 80307; 80320; 81001; 82150; 83690; 83735; 84132; 84703; 85025; 85610; 86703; 86704; 86705; 86706; 86708; 86709; 86803; 87340; 97802; 99218; 99406; G0378; G0379; G0480

== ENCOUNTER 2018-08-29 21:29 | Observation (INO) | payer MEDICAID, SELFPAY ==
[2018-08-29 21:31] VITALS: BP 118/78; PULSE 111; RESP 18; TEMP 37.1; O2SAT 97; BMI 25.2
--- NOTE | 2018-08-29 21:59 | ED.RN ---
PT REPORTS THAT SHE HAS BEEN HAVING N/V, DENIES PEPE. REPORTS SHAKINESS.
--- NOTE | 2018-08-29 22:12 | ED.VISSUMM ---
- ER Visit Summary Date of Service: 08/29/18 Chief Complaint: Requesting detox History of Present Illness: The patient is a 18 F presenting requesting detox from heroin. Patient states that she has used heroin for the past 3 years. She went through detox 2 months ago. She was clean for 2 weeks following that last detox. She has been using for the past 1.5 months. She snorts approximately 1 g/day of heroin and fentanyl. She denies IV drug use. Last use was at 6:30 AM. She complains of restless legs, sweating, vomiting, abdominal cramping. She discussed with [facility] and was advised to come to the ED for admission. Physical Examination: Vitals are stable. Patient is afebrile. Alert no acute distress. HEENT exam is unremarkable. Neck is supple. Lungs are clear and equal bilaterally. Heart is regular and tachycardic Abdomen is soft nontender nondistended. Extremities are unremarkable. Skin is warm and dry. No focal neurologic deficit. Remainder of exam is unremarkable. Emergency Department Course and Treatment: CBC, chemistries unremarkable other than potassium 3.0. Liver enzymes are normal. hCG negative. Tox positive for opiates. Alcohol negative. Patient was given Zofran and potassium oral replacement. Discussed with the hospitalist for admission. Disposition: Admission Impression: Heroin withdrawal This note was generated with [employer] dictation software. It may contain incorrect words, spelling, and punctuation that were not noted in review of the chart prior to signing ED Disposition - Plan for ED Patient: Referrals: [facility] Doctor,Out of [Primary Care Provider] -
--- NOTE | 2018-08-29 22:13 | ED.RN ---
PT REFUSES IV, REQUESTING ORAL MEDICATION AND A BLOOD DRAW. DR. VIERA INFORMED. VERBAL ORDERS GIVEN.
[2018-08-29] MEDS: Ondansetron ODT 4 MG Tablet PO (22:16)
[2018-08-29 22:28] LABS: Absolute Lymphocyte Count 3.54 X10^3/ul (0.83-4.51); Absolute Neutrophil Count 4.2 X10^3/uL (2.0-7.7); Basophil# 0.04 X10^3/uL; Basophil% 0.5 % (0-1); Eosinophils% 1.2 % (0-5); Hemoglobin 13.6 g/dl (12.0-15.0); Lymphocyte # 3.54 X10^3/ul (4.0); Lymphocyte % 42.1 % (19-41); Mean Corp Hgb Conc 34.9 g/gl (32-36); Mean Corpuscular Hgb 29.2 pg (27.0-32.0); Mean Corpuscular Volume 83.9 fL (81-99); Mean Platelet Vol. 10.1 fl (6.2-12.0); Monocyte# 0.53 X10^3/uL; Monocyte% 6.3 % (0-10); Neutrophil # 4.19 X10^3/uL (2.7-7.7); Neutrophil % 49.8 % (47-70); Platelet Count 184 K/mm3 (150-450); RBC Distribution Width CV 12.6 % (11.6-14.6); Red Blood Count 4.65 M/mm3 (4.2-5.4); White Blood Count 8.4 K/mm3 (4.4-11.0)
[2018-08-29 22:30] LABS: POSITIVE COUNT NO; POSITIVE DIFFERENTIAL NO; POSITIVE MORPHOLOGY NO
[2018-08-29 22:48] LABS: Internal QC Validated? YES +Cl - CLEAR BKGD; Pregnancy, Serum, hCG Quali. NEGATIVE Negative
[2018-08-29 22:49] LABS: AST(SGOT) 17 U/L (15-37); Alanine Aminotransfer ALT/SGPT 14 U/L (13-56); Albumin, Serum 4.1 g/dL (3.2-5.0); Alkaline Phosphatase 79 U/L (45-117); Anion Gap 7 (5-15); BUN 14 mg/dL (7-18); BUN/Creat Ratio 18.9 RATIO (10-20); Bilirubin, Direct 0.05 mg/dL (0.00-0.30); Calcium,Total 8.9 mg/dL (8.5-10.1); Chloride 104 mmol/L (98-107); Creatinine, Serum 0.74 mg/dL (0.55-1.02); EST Glomerular Filtration Rate 107 mL/min (>60); Est Glom Filt Rate - Afr Amer 129 mL/min (>60); Estimated Creatinine Clearance 87.11 ml/min; Globulin 3.4 g/dL (2.2-4.2); Glucose 115 mg/dL (74-106); Protein, Total 7.5 g/dL (6.4-8.2); Sodium Level 140 mmol/L (136-145)
[2018-08-29 22:51] LABS: Alcohol, Blood (Medical)-Serum < 3.0 mg/dL
[2018-08-29 22:51] LABS: Amphetamine Urine VISTA NEGATIVE (<1000 ng/mL); Barbiturate Urine VISTA NEGATIVE (< 200 ng/mL); Benzodiazepine Urine VISTA NEGATIVE (< 200 ng/mL); Cocaine Urine VISTA NEGATIVE (< 300 ng/mL); Ecstacy Urine VISTA NEGATIVE (< 500 ng/mL); Methadone Urine VISTA NEGATIVE (< 300 ng/mL); PCP Urine VISTA NEGATIVE (< 25 ng/mL); THC Urine VISTA NEGATIVE (< 50 ng/mL); Vista UDS pH Range 6
--- NOTE | 2018-08-29 23:16 | HP.PCM_ITS ---
Problem List (1) Acute opioid withdrawal Status: Acute (2) Bipolar disorder Status: Chronic (3) History of benzodiazepine use Status: Chronic (4) Acute narcotic withdrawal Status: Acute (5) Heroin abuse Status: Chronic (6) Anxiety and depression Status: Chronic (7) PTSD (post-traumatic stress disorder) Status: Chronic (8) Tobacco abuse Status: Chronic History of Present Illness Date of Admission: 08/29/18 Chief Complaint: Opioid withdrawal symptoms The patient is a 18 year old F with history of chronic opioid abuse including heroin and fentanyl snorting came to ER with opioid withdrawal symptoms. Patient has restlessness, anxiety, muscle aches, stomachaches and diarrhea. Patient snorts 1 g heroin daily, last use 6:30 AM today. 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 She also occasionally takes Xanax 2 mg about once a week, last dose was 2 weeks ago. She denies any previous history of abscess, infectious endocarditis or bacteremia. She does not use IV route. [] Past Medical History Past Medical History (Chronic Problems): Chronic Problems Bipolar disorder (Chronic) History of benzodiazepine use (Chronic) Heroin abuse (Chronic) Anxiety and depression (Chronic) PTSD (post-traumatic stress disorder) (Chronic) Tobacco abuse (Chronic) Allergies amoxicillin [From Augmentin] Allergy (Verified 08/29/18 21:30) Vomiting clavulanic acid [From Augmentin] Allergy (Verified 08/29/18 21:30) Vomiting Home Medications: Ambulatory Orders Medication Instructions Recorded RX: Potassium Chloride 20 meq PO DAILY 08/29/18 Surgical History: - - Deviated septum repair. 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 Paternal History Items: Unknown - She does not know her paternal family history. Review of Systems Constitutional: Reports: Chills, Malaise, Weakness. Denies: Fever, Weight Change HEENT: Denies: Head Aches, Sinus Congestion, Sinus Drainage Cardiovascular: Denies: Chest Pain, Palpitations Respiratory: Denies: Cough, Shortness of breath at rest, Sputum production Gastrointestinal: Reports: Abdominal Pain, Diarrhea, Nausea. Denies: Vomiting Genitourinary: Denies: Dysuria, Frequency, Incontinence, Retention, Urgency Musculoskeletal: Reports: Joint Pain, Leg Pain, Muscle pain. Denies: Joint Tenderness Skin: Denies: Rash, Wounds Neurological: Denies: Numbness, Tingling, Focal weakness Psychiatric: Reports: Anxiety, Depression. Denies: Homicidal Ideations, Suicidal Ideations Endocrine: Reports: Heat/ Cold Intolerance Hematologic/ Lymphatic: Denies: Easy Bruising, Easy Bleeding VTE Information - Inpt Only VTE Present on Admission: No VTE Mechan Device Prophylaxis: None VTE Pharm Prophylaxis ordered?: No Reason prophylaxis not ordered:: Procedure Not Indicated Patient Problems: Active and Suspected Problems Acute opioid withdrawal (Acute) - Physical Exam General: Alert, Oriented x3, Cooperative HEENT: Atraumatic, PERRLA, EOMI, Normocephalic Oral: Dry Mucosa Neck: Supple, No JVD, Negative Carotid Bruits Lungs: Clear to auscultation, Normal air movement, No rhonchi, No wheeze, No rales Cardiovascular: Regular rate, Regular Rhythm, Normal S1, Normal S2, No murmurs Abdomen: Bowel Sounds Present, Soft, Non Tender, Non-Distended Extremities: No edema, Capillary Refill Less than 3 Seconds Skin: No rashes, No breakdown Musculoskeletal: No Tenderness to Palpation of Joints or Extremities Lymphatic: No Cervical, Supraclavicular, or Inguinal Adenopathy Neurological: Cranial nerves II-XII grossly intact, Deep Tendon Reflexes 2+/4 and Symmetrical, Neuro grossly intact, Motor Exam 5/5 strength throughout Psych/Mental Status: Normal Affect, Appropriate Vital Signs Temp Pulse Resp BP Pulse Ox 98.8 F 111 H 18 118/78 97 08/29/18 21:31 08/29/18 21:31 08/29/18 21:31 08/29/18 21:31 08/29/18 21:31 Oxygen Delivery Method Room Air Weight: 129 lb 3.054 oz Body Mass Index (BMI) 25.2 Laboratory Tests Past 24 Hrs 08/29/18 08/29/18 08/29/18 22:20 22:20 22:20 WBC 8.4 RBC 4.65 Hgb 13.6 Hct 39.0 MCV 83.9 MCH 29.2 MCHC 34.9 RDW 12.6 RDW Differential 38.0 Plt Count 184 MPV 10.1 Immature Gran % (Auto) 0.100 Neut % (Auto) 49.8 Lymph % (Auto) 42.1 H [place] % (Auto) 6.3 Eos % (Auto) 1.2 Baso % (Auto) 0.5 Absolute Neuts (auto) 4.2 Absolute Lymphs (auto) 3.54 Total Counted Not Reportable Sodium 140 Potassium 3.0 L Chloride 104 Carbon Dioxide 29.0 Anion Gap 7 BUN 14 Creatinine 0.74 Estim Creat Clear Calc 87.11 Est GFR (MDRD) Af Amer 129 Est GFR (MDRD) Non-Af 107 BUN/Creatinine Ratio 18.9 Glucose 115 H Calcium 8.9 Total Bilirubin 0.20 Direct Bilirubin 0.05 AST 17 ALT 14 Alkaline Phosphatase 79 Total Protein 7.5 Albumin 4.1 Globulin 3.4 Serum , Qual Urine Opiates Screen Urine Methadone Screen Ur Barbiturates Screen Ur Phencyclidine Scrn Ur Amphetamines Screen U Methamphetamin-MDMA U Benzodiazepines Scrn Urine Cocaine Screen U Cannabinoids Screen Ur Drug Screen Comment Ethyl Alcohol < 3.0 08/29/18 08/29/18 22:20 22:27 WBC RBC Hgb Hct MCV MCH MCHC RDW RDW Differential Plt Count MPV Immature Gran % (Auto) Neut % (Auto) Lymph % (Auto) [place] % (Auto) Eos % (Auto) Baso % (Auto) Absolute Neuts (auto) Absolute Lymphs (auto) Total Counted Sodium Potassium Chloride Carbon Dioxide Anion Gap BUN Creatinine Estim Creat Clear Calc Est GFR (MDRD) Af Amer Est GFR (MDRD) Non-Af BUN/Creatinine Ratio Glucose Calcium Total Bilirubin Direct Bilirubin AST ALT Alkaline Phosphatase Total Protein Albumin Globulin Serum , Qual NEGATIVE Urine Opiates Screen POSITIVE H Urine Methadone Screen NEGATIVE Ur Barbiturates Screen NEGATIVE Ur Phencyclidine Scrn NEGATIVE Ur Amphetamines Screen NEGATIVE U Methamphetamin-MDMA NEGATIVE U Benzodiazepines Scrn NEGATIVE Urine Cocaine Screen NEGATIVE U Cannabinoids Screen NEGATIVE Ur Drug Screen Comment Ethyl Alcohol Assessment/Plan All Active Problems Acute opioid withdrawal (Acute) Acute narcotic withdrawal (Acute) This is a 18-year-old female with history of chronic opioid use and dependence along with crack cocaine, infrequently Xanax, nicotine dependence with a smoking cigarettes 1 pack/day was admitted for opioid withdrawal syndrome. Patient is admitted for medical stabilization 1. Acute opioid withdrawal with history of opioid use and dependence: Patient is on medication protocol for [facility] for stabilization of withdrawal syndrome. CINA monitoring. [facility] nurseBatool consult tomorrow morning for for further rehab management. 2. Polysubstance use and dependence including crack cocaine, infrequent Xanax 3. Nicotine dependence: Patient smokes a pack per day started at the age of 13. On nicotine patch Mild hypokalemia: Patient perhaps has chronic hypokalemia and is on 20 M EQ K- dur daily. Last time on 06/06/2018 it was 2.6. Currently 3.0. Potassium replaced. Check magnesium and K tomorrow morning. DVT prophylaxis: Low risk. Early ambulation encouraged. Code Visit Inpatient E&M: 68381 Init Hosp L3
[2018-08-29 23:42] VITALS: BP 114/74; PULSE 104; RESP 14; TEMP 37; O2SAT 99
[2018-08-30] VITALS (8 sets, daily range): BP systolic 105–135; BP diastolic 61–83; PULSE 86–110; RESP 16; TEMP 36.6–36.9; O2SAT 100; BMI 25.0; BMI 25.1
[2018-08-30] MEDS: cloNIDine HCl 0.1 MG Tablet PO ×4 (00:37→19:35)
[2018-08-30] MEDS: Buprenorphine HCl 2 MG TAB.SUBL SL ×4 (00:37→23:55)
[2018-08-30] MEDS: chlordiazePOXIDE 25 MG Capsule PO ×6 (00:38→20:24)
[2018-08-30] MEDS: Pramipexole Di-HCl 0.25 MG Tablet PO ×2 (00:38→14:44)
[2018-08-30] MEDS: hydrOXYzine PAM 25 MG Capsule 50 MG PO ×3 (04:27→19:35)
[2018-08-30] MEDS: Dicyclomine 10 MG Capsule 20 MG PO ×2 (04:27→14:44)
[2018-08-30] MEDS: Ondansetron ODT 4 MG Tablet PO ×2 (08:15→16:54)
--- NOTE | 2018-08-30 09:58 | PCM.PN.HOSP ---
Patient Problems: Active and Suspected Problems Acute opioid withdrawal (Acute) Subjective: Patient seen and examined. She was admitted for acute opiate withdrawal. Patient snorts fentanyl and heroin states she started about 3 years ago. She has had brief periods of sobriety but has not been able to stay sober. She is on opioid withdrawal protocol with Librium. Patient has no complaints this morning. Review of systems otherwise negative. Labs and vitals reviewed. Vitals/I&O's: Vital Signs Temp Pulse Resp BP Pulse Ox 98.0 F 93 16 111/61 99 08/30/18 04:21 08/30/18 04:21 08/30/18 04:21 08/30/18 04:21 08/29/18 23:42 Oxygen Delivery Method Room Air Weight: 128 lb 4.944 oz Body Mass Index (BMI) 25.0 Intake and Output for Last 24 Hours 08/28/18 08/29/18 08/30/18 23:59 23:59 23:59 Intake Total 1000 / 1000 Balance 1000 / 1000 General: Alert, Oriented x3, Cooperative, No apparent distress HEENT: Atraumatic, PERRLA, EOMI, Normocephalic Oral: Moist Mucosa Neck: Supple, No JVD, Negative Carotid Bruits Lungs: Clear to auscultation, Normal air movement, No rhonchi, No wheeze, No rales Cardiovascular: Regular rate, Regular Rhythm, Normal S1, Normal S2, No murmurs Abdomen: Bowel Sounds Present, Soft, Non Tender, Non-Distended, No Hepato-splenomegaly Extremities: No clubbing, No cyanosis, No edema, Capillary Refill Less than 3 Seconds Skin: No rashes, No breakdown Musculoskeletal: No Tenderness to Palpation of Joints or Extremities Lymphatic: No Cervical, Supraclavicular, or Inguinal Adenopathy Neurological: Cranial nerves II-XII grossly intact, Neuro grossly intact, Motor Exam 5/5 strength throughout Psych/Mental Status: Normal Affect, Appropriate, Alert and oriented to time, place, person, mood and affect Laboratory Results 08/29/18 22:20: WBC 8.4, RBC 4.65, Hgb 13.6, Hct 39.0, MCV 83.9, MCH 29.2, MCHC 34.9, RDW 12.6, RDW Differential 38.0, Plt Count 184, MPV 10.1, Immature Gran % (Auto) 0.100, Neut % (Auto) 49.8, Lymph % (Auto) 42.1 H, [place] % (Auto) 6.3, Eos % (Auto) 1.2, Baso % (Auto) 0.5, Absolute Neuts (auto) 4.2, Absolute Lymphs (auto) 3.54, Total Counted Not Reportable 08/29/18 22:20: Sodium 140, Potassium 3.0 L, Chloride 104, Carbon Dioxide 29.0, Anion Gap 7, BUN 14, Creatinine 0.74, Estim Creat Clear Calc 87.11, Est GFR (MDRD) Af Amer 129, Est GFR (MDRD) Non-Af 107, BUN/Creatinine Ratio 18.9, Glucose 115 H, Calcium 8.9, Total Bilirubin 0.20, Direct Bilirubin 0.05, AST 17, ALT 14, Alkaline Phosphatase 79, Total Protein 7.5, Albumin 4.1, Globulin 3.4 08/29/18 22:20: Ethyl Alcohol < 3.0 08/29/18 22:20: Serum , Qual NEGATIVE 08/29/18 22:27: Urine Opiates Screen POSITIVE H, Urine Methadone Screen NEGATIVE, Ur Barbiturates Screen NEGATIVE, Ur Phencyclidine Scrn NEGATIVE, Ur Amphetamines Screen NEGATIVE, U Methamphetamin-MDMA NEGATIVE, U Benzodiazepines Scrn NEGATIVE, Urine Cocaine Screen NEGATIVE, U Cannabinoids Screen NEGATIVE, Ur Drug Screen Comment Current Medications Acetaminophen (Tylenol) 500 mg PO Q4H PRN PRN PRN Reason: Temp > 100.4 F Al Hydroxide/Mg Hydroxide (Mylanta Ii) 30 ml PO Q6H PRN PRN PRN Reason: dyspesia Bisacodyl (Dulcolax) 10 mg RECTAL DAILY PRN PRN Reason: Constipation Buprenorphine HCl (Buprenorphine Hcl) 4 mg SL Q8H RANGEL; Taper Stop: 09/02/18 04:14 Last Admin: 08/30/18 08:15 Dose: 4 mg Chlordiazepoxide (Librium) 25 mg PO Q6H PRN PRN PRN Reason: Moderate-Severe Anxiety Chlordiazepoxide (Librium) 25 mg PO Q4H RANGEL Stop: 08/30/18 20:16 Last Admin: 08/30/18 08:15 Dose: 25 mg Clonidine (Catapres) 0.1 mg PO Q2H PRN PRN PRN Reason: Hot/Cold Sweats or Anxiety Last Admin: 08/30/18 04:27 Dose: 0.1 mg Dicyclomine HCl (Bentyl) 20 mg PO Q6H PRN PRN PRN Reason: Abdomnial Discomfort Last Admin: 08/30/18 04:27 Dose: 20 mg Hydroxyzine HCl (Vistaril Vial) 50 mg IM Q6H PRN PRN PRN Reason: Breakthrough Anxiety Hydroxyzine Pamoate (Vistaril Pamoate Capsule) 50 mg PO Q6H PRN PRN PRN Reason: Mild Anxiety Last Admin: 08/30/18 04:27 Dose: 50 mg Ibuprofen (Motrin) 600 mg PO Q8H PRN PRN PRN Reason: Mild-Moderate Pain (1-5/10) Loperamide HCl (Imodium) 2 - 4 mg PO UD PRN PRN Reason: LOOSE STOOLS Methocarbamol (Methocarbamol) 750 mg PO Q6H PRN PRN PRN Reason: Muscle Aches Nicotine (Nicoderm Cq (Pbkc)) 21 mg TRANSDERM. DAILY [facility] Last Admin: 08/30/18 00:38 Dose: 21 mg Nutritional Formula (Lactose Free) (Ensure Enlive) 120 ml PO 4X/DAY [facility] Ondansetron HCl (Zofran Odt) 4 mg PO Q6H PRN PRN PRN Reason: NAUSEA Last Admin: 08/30/18 08:15 Dose: 4 mg Potassium Chloride (K-Dur) 20 meq PO DAILYCM [facility] Pramipexole Dihydrochloride (Mirapex) 0.25 mg PO Q12H PRN PRN PRN Reason: Restless Legs Last Admin: 08/30/18 00:38 Dose: 0.25 mg Senna (Senokot) 1 tablet PO QHS PRN PRN Reason: Constipation Trazodone HCl (Desyrel) 50 mg PO QHS [facility] Medical Necessity - Tobacco Use Smoking Status: Current every day smoker Assessment/Plan All Active Problems Acute opioid withdrawal (Acute) Acute narcotic withdrawal (Acute) 1. Acute opioid withdrawal on Withdrawal protocol with Librium. [facility] on board; patient wants to follow up with outpatient rehab in [place] after acute withdrawal phase. 2. Hypokalemia: K was 3 on admission; was replaced. Will check and replace as needed. Will check Mg level 3. Nicotine dependence: smokes one pack daily. On nicotine patch 21mg daily. Counseled to quit. DVT prophylaxis: low risk. Encourage ambulation. Code Visit Inpatient E&M: 27470 Subs Hosp L2
--- NOTE | 2018-08-30 10:05 | PN_ITS ---
Patient Problems: Active and Suspected Problems Acute opioid withdrawal (Acute) Subjective: Patient seen and examined. She was admitted for acute opiate withdrawal. Patient snorts fentanyl and heroin states she started about 3 years ago. She has had brief periods of sobriety but has not been able to stay sober. She is on opioid withdrawal protocol with Librium. Patient has no complaints this morning. Review of systems otherwise negative. Labs and vitals reviewed. Vitals/I&O's: Vital Signs Temp Pulse Resp BP Pulse Ox 98.0 F 93 16 111/61 99 08/30/18 04:21 08/30/18 04:21 08/30/18 04:21 08/30/18 04:21 08/29/18 23:42 Oxygen Delivery Method Room Air Weight: 128 lb 4.944 oz Body Mass Index (BMI) 25.0 Intake and Output for Last 24 Hours 08/28/18 08/29/18 08/30/18 23:59 23:59 23:59 Intake Total 1000 / 1000 Balance 1000 / 1000 General: Alert, Oriented x3, Cooperative, No apparent distress HEENT: Atraumatic, PERRLA, EOMI, Normocephalic Oral: Moist Mucosa Neck: Supple, No JVD, Negative Carotid Bruits Lungs: Clear to auscultation, Normal air movement, No rhonchi, No wheeze, No rales Cardiovascular: Regular rate, Regular Rhythm, Normal S1, Normal S2, No murmurs Abdomen: Bowel Sounds Present, Soft, Non Tender, Non-Distended, No Hepato- splenomegaly Extremities: No clubbing, No cyanosis, No edema, Capillary Refill Less than 3 Seconds Skin: No rashes, No breakdown Musculoskeletal: No Tenderness to Palpation of Joints or Extremities Lymphatic: No Cervical, Supraclavicular, or Inguinal Adenopathy Neurological: Cranial nerves II-XII grossly intact, Neuro grossly intact, Motor Exam 5/5 strength throughout Psych/Mental Status: Normal Affect, Appropriate, Alert and oriented to time, place, person, mood and affect Laboratory Results 08/29/18 22:20: WBC 8.4, RBC 4.65, Hgb 13.6, Hct 39.0, MCV 83.9, MCH 29.2, MCHC 34.9, RDW 12.6, RDW Differential 38.0, Plt Count 184, MPV 10.1, Immature Gran % (Auto) 0.100, Neut % (Auto) 49.8, Lymph % (Auto) 42.1 H, [place] % (Auto) 6.3, Eos % (Auto) 1.2, Baso % (Auto) 0.5, Absolute Neuts (auto) 4.2, Absolute Lymphs (auto) 3.54, Total Counted Not Reportable 08/29/18 22:20: Sodium 140, Potassium 3.0 L, Chloride 104, Carbon Dioxide 29.0, Anion Gap 7, BUN 14, Creatinine 0.74, Estim Creat Clear Calc 87.11, Est GFR (MDRD) Af Amer 129, Est GFR (MDRD) Non-Af 107, BUN/Creatinine Ratio 18.9, Glucose 115 H, Calcium 8.9, Total Bilirubin 0.20, Direct Bilirubin 0.05, AST 17, ALT 14, Alkaline Phosphatase 79, Total Protein 7.5, Albumin 4.1, Globulin 3.4 08/29/18 22:20: Ethyl Alcohol < 3.0 08/29/18 22:20: Serum , Qual NEGATIVE 08/29/18 22:27: Urine Opiates Screen POSITIVE H, Urine Methadone Screen NEGATIVE, Ur Barbiturates Screen NEGATIVE, Ur Phencyclidine Scrn NEGATIVE, Ur Amphetamines Screen NEGATIVE, U Methamphetamin-MDMA NEGATIVE, U Benzodiazepines Scrn NEGATIVE, Urine Cocaine Screen NEGATIVE, U Cannabinoids Screen NEGATIVE, Ur Drug Screen Comment Current Medications Acetaminophen (Tylenol) 500 mg PO Q4H PRN PRN PRN Reason: Temp > 100.4 F Al Hydroxide/Mg Hydroxide (Mylanta Ii) 30 ml PO Q6H PRN PRN PRN Reason: dyspesia Bisacodyl (Dulcolax) 10 mg RECTAL DAILY PRN PRN Reason: Constipation Buprenorphine HCl (Buprenorphine Hcl) 4 mg SL Q8H RANGEL; Taper Stop: 09/02/18 04:14 Last Admin: 08/30/18 08:15 Dose: 4 mg Chlordiazepoxide (Librium) 25 mg PO Q6H PRN PRN PRN Reason: Moderate-Severe Anxiety Chlordiazepoxide (Librium) 25 mg PO Q4H RANGEL Stop: 08/30/18 20:16 Last Admin: 08/30/18 08:15 Dose: 25 mg Clonidine (Catapres) 0.1 mg PO Q2H PRN PRN PRN Reason: Hot/Cold Sweats or Anxiety Last Admin: 08/30/18 04:27 Dose: 0.1 mg Dicyclomine HCl (Bentyl) 20 mg PO Q6H PRN PRN PRN Reason: Abdomnial Discomfort Last Admin: 08/30/18 04:27 Dose: 20 mg Hydroxyzine HCl (Vistaril Vial) 50 mg IM Q6H PRN PRN PRN Reason: Breakthrough Anxiety Hydroxyzine Pamoate (Vistaril Pamoate Capsule) 50 mg PO Q6H PRN PRN PRN Reason: Mild Anxiety Last Admin: 08/30/18 04:27 Dose: 50 mg Ibuprofen (Motrin) 600 mg PO Q8H PRN PRN PRN Reason: Mild-Moderate Pain (1-5/10) Loperamide HCl (Imodium) 2 - 4 mg PO UD PRN PRN Reason: LOOSE STOOLS Methocarbamol (Methocarbamol) 750 mg PO Q6H PRN PRN PRN Reason: Muscle Aches Nicotine (Nicoderm Cq (Pbkc)) 21 mg TRANSDERM. DAILY [facility] Last Admin: 08/30/18 00:38 Dose: 21 mg Nutritional Formula (Lactose Free) (Ensure Enlive) 120 ml PO 4X/DAY [facility] Ondansetron HCl (Zofran Odt) 4 mg PO Q6H PRN PRN PRN Reason: NAUSEA Last Admin: 08/30/18 08:15 Dose: 4 mg Potassium Chloride (K-Dur) 20 meq PO DAILYCM [facility] Pramipexole Dihydrochloride (Mirapex) 0.25 mg PO Q12H PRN PRN PRN Reason: Restless Legs Last Admin: 08/30/18 00:38 Dose: 0.25 mg Senna (Senokot) 1 tablet PO QHS PRN PRN Reason: Constipation Trazodone HCl (Desyrel) 50 mg PO QHS [facility] Medical Necessity - Tobacco Use Smoking Status: Current every day smoker Assessment/Plan All Active Problems Acute opioid withdrawal (Acute) Acute narcotic withdrawal (Acute) 1. Acute opioid withdrawal * on Withdrawal protocol with Librium. * [facility] on board; patient wants to follow up with outpatient rehab in [place] after acute withdrawal phase. * 2. Hypokalemia: K was 3 on admission; was replaced. Will check and replace as needed. Will check Mg level 3. Nicotine dependence: smokes one pack daily. On nicotine patch 21mg daily. Counseled to quit. DVT prophylaxis: low risk. Encourage ambulation. Code Visit Inpatient E&M: 23110 Subs Hosp L2
[2018-08-30] MEDS: Methocarbamol 750 MG Tablet PO ×2 (10:55→20:27)
[2018-08-30] MEDS: Ibuprofen 600 MG Tablet PO (10:56)
[2018-08-30] MEDS: traZODone 50 MG Tablet PO (23:55)
[2018-08-31 00:17] VITALS: BP 106/62; PULSE 95; RESP 16; TEMP 36.9
[2018-08-31 08:13] VITALS: BP 108/66; PULSE 77; RESP 18; TEMP 36.9
[2018-08-31] MEDS: Buprenorphine HCl 2 MG TAB.SUBL SL ×2 (08:15→16:07)
--- NOTE | 2018-08-31 10:13 | PCM.PN.HOSP ---
Patient Problems: Active and Suspected Problems Acute opioid withdrawal (Acute) Vitals/I&O's: Vital Signs Temp Pulse Resp BP Pulse Ox 98.5 F 77 18 108/66 100 08/31/18 08:13 08/31/18 08:13 08/31/18 08:13 08/31/18 08:13 08/30/18 20:30 Oxygen Delivery Method Room Air Weight: 128 lb 4.944 oz Body Mass Index (BMI) 25.0 Intake and Output for Last 24 Hours 08/29/18 08/30/18 08/31/18 23:59 23:59 23:59 Intake Total 3525 / 3525 250 / 250 Balance 3525 / 3525 250 / 250 General: Alert, Oriented x3, Cooperative, No apparent distress HEENT: Atraumatic, PERRLA, EOMI, Normocephalic Oral: Moist Mucosa Neck: Supple, No JVD, Negative Carotid Bruits Lungs: Clear to auscultation, Normal air movement, No rhonchi, No wheeze, No rales Cardiovascular: Regular rate, Regular Rhythm, Normal S1, Normal S2, No murmurs Abdomen: Bowel Sounds Present, Soft, Non Tender, Non-Distended, No Hepato-splenomegaly Extremities: No clubbing, No cyanosis, No edema, Capillary Refill Less than 3 Seconds Skin: No rashes, No breakdown Musculoskeletal: No Tenderness to Palpation of Joints or Extremities Lymphatic: No Cervical, Supraclavicular, or Inguinal Adenopathy Neurological: Cranial nerves II-XII grossly intact, Neuro grossly intact, Motor Exam 5/5 strength throughout Psych/Mental Status: Normal Affect, Appropriate, Alert and oriented to time, place, person, mood and affect Current Medications Acetaminophen (Tylenol) 500 mg PO Q4H PRN PRN PRN Reason: Temp > 100.4 F Al Hydroxide/Mg Hydroxide (Mylanta Ii) 30 ml PO Q6H PRN PRN PRN Reason: dyspesia Bisacodyl (Dulcolax) 10 mg RECTAL DAILY PRN PRN Reason: Constipation Buprenorphine HCl (Buprenorphine Hcl) 2 mg SL Q8H RANGEL; Taper Stop: 09/02/18 04:14 Last Admin: 08/31/18 08:15 Dose: 2 mg Chlordiazepoxide (Librium) 25 mg PO Q6H PRN PRN PRN Reason: Moderate-Severe Anxiety Clonidine (Catapres) 0.1 mg PO Q2H PRN PRN PRN Reason: Hot/Cold Sweats or Anxiety Last Admin: 08/30/18 19:35 Dose: 0.1 mg Dicyclomine HCl (Bentyl) 20 mg PO Q6H PRN PRN PRN Reason: Abdomnial Discomfort Last Admin: 08/30/18 14:44 Dose: 20 mg Hydroxyzine HCl (Vistaril Vial) 50 mg IM Q6H PRN PRN PRN Reason: Breakthrough Anxiety Hydroxyzine Pamoate (Vistaril Pamoate Capsule) 50 mg PO Q6H PRN PRN PRN Reason: Mild Anxiety Last Admin: 08/30/18 19:35 Dose: 50 mg Ibuprofen (Motrin) 600 mg PO Q8H PRN PRN PRN Reason: Mild-Moderate Pain (1-5/10) Last Admin: 08/30/18 10:56 Dose: 600 mg Loperamide HCl (Imodium) 2 - 4 mg PO UD PRN PRN Reason: LOOSE STOOLS Methocarbamol (Methocarbamol) 750 mg PO Q6H PRN PRN PRN Reason: Muscle Aches Last Admin: 08/30/18 20:27 Dose: 750 mg Nicotine (Nicoderm Cq (Pbkc)) 21 mg TRANSDERM. DAILY [facility] Last Admin: 08/31/18 08:15 Dose: 21 mg Ondansetron HCl (Zofran Odt) 4 mg PO Q6H PRN PRN PRN Reason: NAUSEA Last Admin: 08/30/18 16:54 Dose: 4 mg [facility] Last Admin: 08/31/18 08:16 Dose: 20 meq Pramipexole Dihydrochloride (Mirapex) 0.25 mg PO Q12H PRN PRN PRN Reason: Restless Legs Last Admin: 08/30/18 14:44 Dose: 0.25 mg Senna (Senokot) 1 tablet PO QHS PRN PRN Reason: Constipation Trazodone HCl (Desyrel) 50 mg PO QHS [facility] Last Admin: 08/30/18 23:55 Dose: 50 mg Medical Necessity - Tobacco Use Smoking Status: Current every day smoker Assessment/Plan All Active Problems Acute opioid withdrawal (Acute) Acute narcotic withdrawal (Acute) 1. Acute opioid withdrawal on Withdrawal protocol with Librium. [facility] on board; patient wants to follow up with outpatient rehab in [place] after acute withdrawal phase. 2. Hypokalemia: K was 3 on admission; was replaced. patient refusing blood draw to check potassium level and magnesium level. 3. Nicotine dependence: smokes one pack daily. On nicotine patch 21mg daily. Counseled to quit. DVT prophylaxis: low risk. Encourage ambulation. Code Visit Inpatient E&M: 52736 Subs Hosp L2
--- NOTE | 2018-08-31 10:14 | NURSING ---
notified dr maguire that pt refused bloodwork this am.
[2018-08-31] MEDS: Methocarbamol 750 MG Tablet PO ×2 (12:17→20:11)
[2018-08-31] MEDS: cloNIDine HCl 0.1 MG Tablet PO ×3 (12:17→20:11)
[2018-08-31 16:04] VITALS: BP 97/58; PULSE 77; RESP 14; TEMP 37.6
[2018-08-31 20:01] VITALS: BP 93/65; PULSE 102; RESP 18; TEMP 37.3
[2018-08-31] MEDS: Dicyclomine 10 MG Capsule 20 MG PO (20:11)
[2018-08-31] MEDS: Ibuprofen 600 MG Tablet PO (20:17)
[2018-08-31] MEDS: traZODone 50 MG Tablet PO (21:55)
[2018-09-01 01:12] VITALS: BP 98/51; PULSE 73; RESP 18; TEMP 36.4
[2018-09-01] MEDS: Buprenorphine HCl 2 MG TAB.SUBL SL ×2 (04:15→16:17)
[2018-09-01 07:58] VITALS: BP 89/67; PULSE 93; RESP 16; TEMP 36.7
[2018-09-01 08:08] VITALS: BP 110/65
[2018-09-01] MEDS: cloNIDine HCl 0.1 MG Tablet PO (08:13)
--- NOTE | 2018-09-01 10:38 | DCINST_ITS ---
- Discharge Diagnoses Current Active Problems: Current Active and Chronic Problems Acute opioid withdrawal (Acute) You will use the following diet at home:: No restrictions Your food should be the consistency of: Regular Your liquids should be the consistency of: Regular/Thin Discharge Activity: Return to Normal Activity Weight Bearing Status: Weight bearing as tolerated Call your doctor if you observe: Fever of 101 or Higher, Shortness of breath Instructions: ED Withdrawal Narcotic, ED Narcotic Abuse Additional Instructions: follow up with outpatient rehab as set up by [facility] Allergies/Adverse Reactions: Allergies amoxicillin [From Augmentin] Allergy (Verified 08/29/18 21:30) Vomiting clavulanic acid [From Augmentin] Allergy (Verified 08/29/18 21:30) Vomiting Medications to take at Discharge Potassium Chloride 20 meq PO DAILY 08/29/18 Primary Care Physician: Merlene Reardon,Out of [Primary Care Provider] - Please follow up with your Primary Care Physician in: one week Test Results: Test results from this visit will be discussed in further detail at your follow- up appointment, if applicable. Proposed Discharge Date: 09/01/18
--- NOTE | 2018-09-01 10:38 | DS.PCM_ITS ---
Discharge Date and Diagnosis - Problem List Patient Problems: Active and Suspected Problems Acute opioid withdrawal (Acute) Date of Admission: 08/29/18 Date of Discharge: 09/01/18 - Primary Discharge Diagnosis Active and Suspected Problems Acute opioid withdrawal (Acute) - Secondary Discharge Diagnosis Chronic Problems Bipolar disorder (Chronic) History of benzodiazepine use (Chronic) Heroin abuse (Chronic) Anxiety and depression (Chronic) PTSD (post-traumatic stress disorder) (Chronic) Tobacco abuse (Chronic) Hospital Course and Treatment Operations: None Procedures: None Summary of Care Provided: The patient is a 18 year old F was admitted to the ED on 08/29/2018 with a c omplaint of opioid withdrawal symptoms. She complained of restlessness, anxiety, muscle aches, muscle aches and diarrhea. She has a history of chronic opioid abuse including heroin and fentanyl snorting and had snorted 1 g of heroin on day of admission. She also uses crack cocaine and occasionally took Xanax about once weekly. She was admitted and managed for acute opiate withdrawal. She was started on Librium withdrawal protocol. Patient tolerated 3-day course of Librium for acute withdrawal. She remained stable and was discharged on 09/01/2018. She is to follow-up with her PCP and with outpatient rehab program as set up by [facility]. Patient seen and examined prior to discharge. She had no complaints. Review of systems otherwise negative. Labs and vitals reviewed. Home medications reviewed and reconciled. o/e: Vital Signs Height 5 ft Weight: 128 lb 4.944 oz Weight in Pounds 128.3 lbs Pulse Ox 100 Temperature 98.1 F Pulse Rate 93 Respiratory Rate 16 Blood Pressure [BP] 110/65 Blood Pressure 89/67 Blood Pressure Position [BP] Sitting Blood Pressure Position Sitting [] General: Alert, Oriented x3, Cooperative, No apparent distress HEENT: Atraumatic, PERRLA, EOMI, Normocephalic Oral: Moist Mucosa Neck: Supple, No JVD, Negative Carotid Bruits Lungs: Clear to auscultation, Normal air movement, No rhonchi, No wheeze, No rales Cardiovascular: Regular rate, Regular Rhythm, Normal S1, Normal S2, No murmurs Abdomen: Bowel Sounds Present, Soft, Non Tender, Non-Distended, No Hepato- splenomegaly Extremities: No clubbing, No cyanosis, No edema, Capillary Refill Less than 3 Seconds Skin: No rashes, No breakdown Musculoskeletal: No Tenderness to Palpation of Joints or Extremities Lymphatic: No Cervical, Supraclavicular, or Inguinal Adenopathy Neurological: Cranial nerves II-XII grossly intact, Neuro grossly intact, Motor Exam 5/5 strength throughout Psych/Mental Status: Normal Affect, Appropriate, Alert and oriented to time, place, person, mood and affect Plan as above. Patient Problems: Active and Suspected Problems Acute opioid withdrawal (Acute) - Physical Exam Vital Signs Temp Pulse Resp BP Pulse Ox 98.1 F 93 16 110/65 100 09/01/18 07:58 09/01/18 07:58 09/01/18 07:58 09/01/18 08:08 08/30/18 20:30 Oxygen Delivery Method Room Air Weight: 128 lb 4.944 oz Body Mass Index (BMI) 25.0 Intake and Output for Last 24 Hours 08/30/18 08/31/18 09/01/18 23:59 23:59 23:59 Intake Total 3525 / 3525 850 / 850 900 / 900 Balance 3525 / 3525 850 / 850 900 / 900 Discharge Diet: No Restrictions Discharge Activity: Return to Normal Activity Weight Bearing Status: Weight bearing as tolerated Call your doctor if you observe: Fever of 101 or Higher, Shortness of breath Home Medications: Medications to take at Discharge Potassium Chloride 20 meq PO DAILY 08/29/18 Primary Care Physician: Merlene Reardon,Out of [Primary Care Provider] - Please follow up with your Primary Care Physician in: one week Patient Instructions: ED Narcotic Abuse, ED Withdrawal Narcotic Disposition: Home Minutes spent on discharge:: 35 Patient Condition:: Stable Medical Necessity - Tobacco Use Smoking Status: Current every day smoker Meaningful Use Info Meaningful Use Diagnoses (Choose all that apply): None applicable Code Visit Inpatient E&M: 24758 Disch Hosp
[2018-09-01 14:00] VITALS: BP 93/59; PULSE 81; RESP 16; TEMP 36.8
[2018-09-01] MEDS: chlordiazePOXIDE 25 MG Capsule PO (14:27)
[2018-09-01] MEDS: Methocarbamol 750 MG Tablet PO (14:27)
== END 2018-09-01 16:29 | disposition home or self-care (01) | DRG 773 ==
LOC: ED 22:17 → MS3 23:38
PROVIDERS: Admitting Provider Internal Medicine; Emergency Provider Emergency Medicine; Visit Provider Student in an Organized Health Care Education/Training Program
DX: F11.23 Opioid dependence with withdrawal (principal); F31.9 Bipolar disorder, unspecified; F41.9 Anxiety disorder, unspecified; F43.12 Post-traumatic stress disorder, chronic; F14.90 Cocaine use, unspecified, uncomplicated; E87.6 Hypokalemia; F17.200 Nicotine dependence, unspecified, uncomplicated
CPT/HCPCS: 80048; 80076; 80307; 80320; 84703; 85025; 97802; 99218; 99283; 99406; G0378; G0480